=== PATIENT | male | born 1960 | race Two or more races ===

== ENCOUNTER 2022-03-24 06:38 | Inpatient (IN) | payer OTHER ==
[~2022-03-24] VITALS: Ht 180.3 cm; Wt 73.2 kg
[2022-03-24] VITALS (15 sets, daily range): BP systolic 148–190; BP diastolic 73–99
[2022-03-24] MEDS ORDERED: BENA20TA83 PO (06:53)
[2022-03-24] MEDS ORDERED: SEVE800T17 PO (06:53)
[2022-03-24] MEDS ORDERED: CLOP75TA60 PO (06:53)
[2022-03-24] MEDS ORDERED: ATOR20TA86 PO (06:53)
[2022-03-24] MEDS ORDERED: CINA30 PO (06:53)
[2022-03-24] MEDS ORDERED: ALLO-97 PO (06:53)
[2022-03-24] MEDS ORDERED: CARV3 PO (06:53)
[2022-03-24] MEDS ORDERED: NIFE-129 PO (06:53)
[2022-03-24] MEDS ORDERED: ASPIRIN 81 MG CHEWABLE TABLET PO ONE (07:00)
[2022-03-24] MEDS ORDERED: NITROGLYCERIN 2% (1 GM=INCH) PACKET TP ONE (07:00)
[2022-03-24 07:08] LABS: BASOPHILS % (AUTO) 0.5 % (0.0-2.0); EOSINOPHILS % (AUTO) 7.2 % (1.0-6.0); HEMATOCRIT 31.4 % (41-53); HEMOGLOBIN 10.3 g/dL (13.5-17.5); LYMPHOCYTES # (AUTO) 0.7 K/uL (1.0-4.8); LYMPHOCYTES % (AUTO) 17.2 % (22.0-44.0); MEAN CORPUSCULAR HEMOGLOBIN 30.9 pg (26.0-34.0); MEAN CORPUSCULAR HGB CONC 32.8 G/dL (31.0-37.0); MEAN CORPUSCULAR VOLUME 94 fL (80-100); MONOCYTES # (AUTO) 0.5 K/uL (0.1-1.0); MONOCYTES % (AUTO) 10.8 % (2.0-9.0); NEUTROPHILS # (AUTO) 2.7 K/uL (1.8-7.7); NEUTROPHILS % (AUTO) 64.3 % (40.0-70.0); RED BLOOD CELL COUNT(AUTO) 3.34 MIL/uL (4.50-5.90); RED CELL DISTRIBUTION WIDTH 15.1 % (11.5-14.5)
[2022-03-24 07:16] LABS: CALCIUM, TOTAL 9.3 mg/dL (8.8-10.5); CREATININE 5.96 mg/dL (0.60-1.30); POTASSIUM 5.5 mmol/L (3.5-5.1)
[2022-03-24 07:30] LABS: PLATELET COUNT (AUTO) 99 K/uL (150-450); PLATELET MORPHOLOGY COMMENT LARGE PLTS PRESENT
[2022-03-24 07:39] LABS: COVID AG,FIA SOURCE NASOPHARYNGEAL
[2022-03-24] MEDS ORDERED: ONDANSETRON HCL 4 MG/2 ML VIAL IVP PRN ×2 (08:00→13:15)
[2022-03-24] MEDS ORDERED: ACETAMINOPHEN 325 MG TABLET PO PRN (08:00)
[2022-03-24] MEDS ORDERED: HEPARIN SODIUM 1000 UNITS/NS 1,000 ML ONE (12:23)
[2022-03-24] MEDS ORDERED: LIDOCAINE/PF 1% 30 ML VIAL ONE (12:23)
[2022-03-24] MEDS ORDERED: IOHEXOL 350 MG/ML 100 ML VIAL ONE (12:23)
[2022-03-24] MEDS ORDERED: SODIUM BICARBONATE 50 MEQ/50 ML VIAL ONE (12:23)
[2022-03-24] MEDS ORDERED: MAGNESIUM HYDROXIDE SUSPENSION 30 ML UDCUP PO PRN (13:15)
[2022-03-24] MEDS ORDERED: ZOLPIDEM TARTRATE 5 MG TABLET PO PRN (13:15)
[2022-03-24] MEDS ORDERED: SODIUM CHLORIDE 0.9% 500 ML IV ONE (13:15)
[2022-03-24] MEDS ORDERED: HEPARIN SODIUM 1000 UNITS/NS 1,000 ML IARTER ONE (13:15)
[2022-03-24] MEDS ORDERED: BISACODYL 10 MG RECTAL RECTAL SUPPOSITORY PR PRN (13:15)
[2022-03-24] MEDS ORDERED: FentaNYL CITRATE PF 100 MCG/2 ML VIAL IVP ONE ×2 (13:15→14:15)
[2022-03-24] MEDS ORDERED: MORPHINE SULFATE 2 MG/ML SYRINGE IVP PRN (13:15)
[2022-03-24] MEDS ORDERED: LIDOCAINE 1% 30 ML/SOD BICARB 8.4% 4 ML SQ ONE (13:15)
[2022-03-24] MEDS ORDERED: MIDAZOLAM HCL 2 MG/2 ML VIAL IVP ONE ×2 (13:15→14:15)
[2022-03-24] MEDS ORDERED: FentaNYL CITRATE PF 100 MCG/2 ML VIAL ONE (13:23)
[2022-03-24] MEDS ORDERED: MIDAZOLAM HCL 2 MG/2 ML VIAL ONE (13:24)
[2022-03-24] MEDS ORDERED: HydrALAZINE HCL 20 MG/ML VIAL ONE (13:56)
[2022-03-24] MEDS ORDERED: HydrALAZINE HCL 20 MG/ML VIAL IVP ONE ×2 (14:00→14:15)
[2022-03-24] MEDS ORDERED: IOHEXOL 350 MG/ML 100 ML VIAL IARTER ONE (14:30)
[2022-03-24] MEDS ORDERED: ONDANSETRON HCL 4 MG/2 ML VIAL ONE (14:57)
[2022-03-24] MEDS ORDERED: ONDANSETRON HCL 4 MG/2 ML VIAL IVP ONE (15:00)
[2022-03-24] MEDS: HEPARIN SODIUM,PORCINE 5,000 UNITS/ML VIAL SQ SCH (15:26)
[2022-03-24] MEDS: ACETAMINOPHEN 325 MG TABLET PO PRN (16:15)
[2022-03-24] MEDS ORDERED: PNEUMOCOCCAL VACCINE POLYVALENT 0.5 ML VIAL [PPSV23] IM. ONE (17:30)
[2022-03-24] MEDS: SEVELAMER CARBONATE 800 MG TABLET PO SCH (19:05)
[2022-03-24] MEDS ORDERED: CARVEDILOL 3.125 MG TABLET PO SCH (21:00)
[2022-03-24] MEDS: ATORVASTATIN CALCIUM 20 MG TABLET PO SCH (21:10)
[2022-03-24] MEDS: DOCUSATE SODIUM 100 MG CAPSULE PO SCH (21:11)
[2022-03-25] VITALS (18 sets, daily range): BP systolic 113–176; BP diastolic 65–101
[2022-03-25] MEDS: HYDROCODONE/ACETAMINOPHEN 5-325 MG TABLET PO PRN ×2 (06:08→22:54)
[2022-03-25 06:27] LABS: CALCIUM, TOTAL 9.1 mg/dL (8.8-10.5); CREATININE 7.57 mg/dL (0.60-1.30)
[2022-03-25 06:52] LABS: POTASSIUM 6.6 mmol/L (3.5-5.1)
[2022-03-25 07:02] LABS: BASOPHILS % (AUTO) 1.3 % (0.0-2.0); EOSINOPHILS % (AUTO) 7.9 % (1.0-6.0); HEMATOCRIT 29.8 % (41-53); HEMOGLOBIN 9.8 g/dL (13.5-17.5); LYMPHOCYTES # (AUTO) 0.8 K/uL (1.0-4.8); LYMPHOCYTES % (AUTO) 16.1 % (22.0-44.0); MEAN CORPUSCULAR HEMOGLOBIN 30.8 pg (26.0-34.0); MEAN CORPUSCULAR HGB CONC 32.7 G/dL (31.0-37.0); MEAN CORPUSCULAR VOLUME 94 fL (80-100); MONOCYTES # (AUTO) 0.6 K/uL (0.1-1.0); MONOCYTES % (AUTO) 11.6 % (2.0-9.0); NEUTROPHILS # (AUTO) 3.2 K/uL (1.8-7.7); NEUTROPHILS % (AUTO) 63.1 % (40.0-70.0); PLATELET COUNT (AUTO) 92 K/uL (150-450); RED BLOOD CELL COUNT(AUTO) 3.16 MIL/uL (4.50-5.90)
[2022-03-25 07:05] LABS: PHOSPHORUS 5.6 mg/dL (2.5-4.9)
[2022-03-25] MEDS ORDERED: SODIUM CHLORIDE 0.9% 2,000 ML ONE (07:28)
[2022-03-25] MEDS: SEVELAMER CARBONATE 800 MG TABLET PO SCH ×3 (08:00→17:52)
[2022-03-25] MEDS: CINACALCET HCL 30 MG TABLET PO SCH ×2 (08:00→11:50)
[2022-03-25] MEDS: HEPARIN SODIUM,PORCINE 5,000 UNITS/ML VIAL SQ SCH ×4 (08:00→23:13)
[2022-03-25] MEDS: NIFEdipine 60 MG ER TABLET PO SCH ×2 (09:00→11:50)
[2022-03-25] MEDS: DOCUSATE SODIUM 100 MG CAPSULE PO SCH ×2 (10:01→20:37)
[2022-03-25] MEDS: PANTOPRAZOLE SODIUM 40 MG DR TABLET PO SCH (10:02)
[2022-03-25] MEDS: ALLOPURINOL 100 MG TABLET PO SCH (10:03)
[2022-03-25] MEDS: EPOETIN ALFA 10,000 UNITS/ML 2 ML VIAL SQ SCH (10:03)
[2022-03-25] MEDS: ACETAMINOPHEN 325 MG TABLET PO PRN (15:36)
[2022-03-25] MEDS: CARVEDILOL 6.25 MG TABLET PO SCH (20:38)
[2022-03-25] MEDS: ATORVASTATIN CALCIUM 20 MG TABLET PO SCH (20:38)
[2022-03-26 04:15] VITALS: BP 142/73
[2022-03-26 06:55] LABS: BASOPHILS % (AUTO) 1.3 % (0.0-2.0); EOSINOPHILS % (AUTO) 8.8 % (1.0-6.0); HEMOGLOBIN 9.2 g/dL (13.5-17.5); LYMPHOCYTES # (AUTO) 0.7 K/uL (1.0-4.8); LYMPHOCYTES % (AUTO) 13.4 % (22.0-44.0); MEAN CORPUSCULAR HEMOGLOBIN 30.9 pg (26.0-34.0); MEAN CORPUSCULAR HGB CONC 33.1 G/dL (31.0-37.0); MEAN CORPUSCULAR VOLUME 93 fL (80-100); MONOCYTES # (AUTO) 0.5 K/uL (0.1-1.0); MONOCYTES % (AUTO) 10.3 % (2.0-9.0); NEUTROPHILS # (AUTO) 3.3 K/uL (1.8-7.7); NEUTROPHILS % (AUTO) 66.2 % (40.0-70.0); PLATELET COUNT (AUTO) 103 K/uL (150-450); RED CELL DISTRIBUTION WIDTH 15.1 % (11.5-14.5)
[2022-03-26 07:10] LABS: CALCIUM, TOTAL 8.9 mg/dL (8.8-10.5); CREATININE 5.49 mg/dL (0.60-1.30)
[2022-03-26 07:13] VITALS: BP 141/77
[2022-03-26] MEDS: HEPARIN SODIUM,PORCINE 5,000 UNITS/ML VIAL SQ SCH ×3 (08:00→23:59)
[2022-03-26] MEDS: CINACALCET HCL 30 MG TABLET PO SCH (08:06)
[2022-03-26] MEDS: DOCUSATE SODIUM 100 MG CAPSULE PO SCH ×2 (08:06→21:02)
[2022-03-26] MEDS: CARVEDILOL 6.25 MG TABLET PO SCH ×2 (08:06→21:02)
[2022-03-26] MEDS: PANTOPRAZOLE SODIUM 40 MG DR TABLET PO SCH (08:06)
[2022-03-26] MEDS: ALLOPURINOL 100 MG TABLET PO SCH (08:06)
[2022-03-26] MEDS: SEVELAMER CARBONATE 800 MG TABLET PO SCH ×3 (08:06→17:33)
[2022-03-26] MEDS: ASPIRIN 81 MG DR TABLET PO SCH (08:06)
[2022-03-26] MEDS: ACETAMINOPHEN 325 MG TABLET PO PRN (08:07)
[2022-03-26] MEDS: NIFEdipine 60 MG ER TABLET PO SCH (08:07)
[2022-03-26 11:11] VITALS: BP 135/81
[2022-03-26 14:46] VITALS: BP 105/65
[2022-03-26] MEDS: HYDROCODONE/ACETAMINOPHEN 5-325 MG TABLET PO PRN (16:39)
[2022-03-26 19:11] VITALS: BP 130/72
[2022-03-26] MEDS: SACUBITRIL/VALSARTAN 24-26 MG TABLET PO SCH (21:02)
[2022-03-26] MEDS: ATORVASTATIN CALCIUM 20 MG TABLET PO SCH (21:02)
[2022-03-26 23:37] VITALS: BP 131/68
[2022-03-27] VITALS (11 sets, daily range): BP systolic 134–161; BP diastolic 70–84
[2022-03-27 06:21] LABS: BASOPHILS % (AUTO) 0.9 % (0.0-2.0); HEMATOCRIT 26.9 % (41-53); HEMOGLOBIN 8.9 g/dL (13.5-17.5); LYMPHOCYTES # (AUTO) 0.8 K/uL (1.0-4.8); LYMPHOCYTES % (AUTO) 16.3 % (22.0-44.0); MEAN CORPUSCULAR HEMOGLOBIN 30.7 pg (26.0-34.0); MEAN CORPUSCULAR HGB CONC 32.9 G/dL (31.0-37.0); MEAN CORPUSCULAR VOLUME 93 fL (80-100); MONOCYTES # (AUTO) 0.6 K/uL (0.1-1.0); MONOCYTES % (AUTO) 12.5 % (2.0-9.0); NEUTROPHILS # (AUTO) 2.8 K/uL (1.8-7.7); NEUTROPHILS % (AUTO) 59.3 % (40.0-70.0); PLATELET COUNT (AUTO) 99 K/uL (150-450); RED BLOOD CELL COUNT(AUTO) 2.89 MIL/uL (4.50-5.90)
[2022-03-27 06:30] LABS: CALCIUM, TOTAL 8.9 mg/dL (8.8-10.5); CREATININE 7.25 mg/dL (0.60-1.30); POTASSIUM 5.7 mmol/L (3.5-5.1)
[2022-03-27] MEDS: ASPIRIN 81 MG DR TABLET PO SCH (08:55)
[2022-03-27] MEDS: DOCUSATE SODIUM 100 MG CAPSULE PO SCH (08:55)
[2022-03-27] MEDS: ALLOPURINOL 100 MG TABLET PO SCH (08:55)
[2022-03-27] MEDS: PANTOPRAZOLE SODIUM 40 MG DR TABLET PO SCH (08:55)
[2022-03-27] MEDS: SEVELAMER CARBONATE 800 MG TABLET PO SCH ×2 (08:55→13:08)
[2022-03-27] MEDS: CINACALCET HCL 30 MG TABLET PO SCH (08:55)
[2022-03-27] MEDS: HEPARIN SODIUM,PORCINE 5,000 UNITS/ML VIAL SQ SCH (08:57)
[2022-03-27] MEDS ORDERED: NIFEdipine 30 MG ER TABLET PO SCH (09:00)
[2022-03-27] MEDS: HYDROCODONE/ACETAMINOPHEN 5-325 MG TABLET PO PRN (09:25)
[2022-03-27] MEDS ORDERED: SODIUM CHLORIDE 0.9% 2,000 ML ONE (09:30)
[2022-03-27] MEDS ORDERED: ASPI-1444 PO (11:02)
[2022-03-27] MEDS ORDERED: CARV6 PO (11:02)
[2022-03-27] MEDS ORDERED: NIFE-40 PO (11:02)
[2022-03-27] MEDS ORDERED: SACU1TAB PO (11:02)
[2022-03-27] MEDS: SACUBITRIL/VALSARTAN 24-26 MG TABLET PO SCH (13:07)
[2022-03-27] MEDS: CARVEDILOL 6.25 MG TABLET PO SCH (13:08)
[2022-03-27] MEDS: EPOETIN ALFA 10,000 UNITS/ML 2 ML VIAL SQ SCH (13:11)
== END 2022-03-27 15:30 | disposition home or self-care (01) | DRG 192 ==
LOC: EMS 06:38 → 5S 11:54 → 5N 15:10
PROVIDERS: ADMIT Internal Medicine; ATTEND Internal Medicine
PROC: 4A023N8 Measurement of Cardiac Sampling and Pressure, Bilateral, Percutaneous Approach (ICD-10-PCS; principal; 2022-03-24)
PROC: B2111ZZ Fluoroscopy of Multiple Coronary Arteries using Low Osmolar Contrast (ICD-10-PCS; 2022-03-24)
PROC: B2151ZZ Fluoroscopy of Left Heart using Low Osmolar Contrast (ICD-10-PCS; 2022-03-24)
PROC: B41F1ZZ Fluoroscopy of Right Lower Extremity Arteries using Low Osmolar Contrast (ICD-10-PCS; 2022-03-24)
PROC: B24BZZ4 Ultrasonography of Heart with Aorta, Transesophageal (ICD-10-PCS; 2022-03-24)
PROC: 5A1D70Z Performance of Urinary Filtration, Intermittent, Less than 6 Hours Per Day (ICD-10-PCS; 2022-03-25)
DX: I13.2 Hypertensive heart and chronic kidney disease with heart failure and with stage 5 chronic kidney disease, or end stage renal disease (principal); D69.6 Thrombocytopenia, unspecified; I27.20 Pulmonary hypertension, unspecified; I42.9 Cardiomyopathy, unspecified; N18.6 End stage renal disease; D63.1 Anemia in chronic kidney disease; I50.43 Acute on chronic combined systolic (congestive) and diastolic (congestive) heart failure; I25.10 Atherosclerotic heart disease of native coronary artery without angina pectoris; N25.81 Secondary hyperparathyroidism of renal origin; E87.5 Hyperkalemia; Z99.2 Dependence on renal dialysis; E78.5 Hyperlipidemia, unspecified; K59.00 Constipation, unspecified; M10.9 Gout, unspecified; Z20.822 Contact with and (suspected) exposure to COVID-19; N20.0 Calculus of kidney; I08.1 Rheumatic disorders of both mitral and tricuspid valves; Z79.02 Long term (current) use of antithrombotics/antiplatelets; Z79.82 Long term (current) use of aspirin; Z86.73 Personal history of transient ischemic attack (TIA), and cerebral infarction without residual deficits; Z87.442 Personal history of urinary calculi; Z79.899 Other long term (current) drug therapy; Z88.0 Allergy status to penicillin
CPT/HCPCS: 71045; 80048; 84100; 84132; 84484; 85025; 87081; 87340; 90935; 93005; 93460; 93926; 99285; J0360; J0885; J1644; J2250; J2270; J2405; J3010; J3490; J7030; Q9967; 36415-L1; 36415-TC